=== PATIENT | male | born 1995 | race African-American/Black ===

== ENCOUNTER 2023-04-27 22:25 | Emergency (ER) | payer MEDICAID ==
[~2023-04-27] VITALS: Ht 177.8 cm; Wt 71.7 kg
[2023-04-27 23:02] VITALS: BP 114/79; TEMP 98.2
[2023-04-27] MEDS ORDERED: ACETAMINOPHEN ES 500 MG TABLET ONE (23:57)
[2023-04-27] MEDS ORDERED: NAPROXEN 250 MG TABLET ONE (23:57)
[2023-04-27] MEDS ORDERED: ACET-2605 PO (23:58)
[2023-04-27] MEDS ORDERED: IBUP-1955 PO (23:58)
[2023-04-28] MEDS ORDERED: ACETAMINOPHEN ES 500 MG TABLET PO ONE
[2023-04-28] MEDS ORDERED: NAPROXEN 250 MG TABLET PO ONE
[2023-04-28 00:09] VITALS: O2SAT 98
== END 2023-04-28 00:13 | disposition home or self-care (01) ==
LOC: ER 22:34
DX: R51.9 Headache, unspecified (principal); H93.19 Tinnitus, unspecified ear; F17.200 Nicotine dependence, unspecified, uncomplicated